=== PATIENT | female | born 1940 | race Caucasian/White ===

== ENCOUNTER 2016-06-03 14:59 | Inpatient (IN) | payer MEDICAID, MEDICARE ==
[2016-06-03 16:20] LABS: Basophils % (Auto) 0.2 % (0.0-1.8); Eosinophils % (Auto) 0.7 % (0.0-4.3); Hematocrit 36.7 % (30.3-42.9); Hemoglobin 12.6 gm/dl (10.1-14.3); Mean Corpuscular HGB Conc 34 % (30-34); Mean Corpuscular Hemoglobin 33 pg (28-32); Mean Corpuscular Volume 95 fl (79-97); Platelet Count 196 K/mm3 (140-440); Red Blood Count 3.86 M/mm3 (3.65-5.03); Red Cell Distribution Width 12.9 % (13.2-15.2); White Blood Count 10.7 K/mm3 (4.5-11.0)
[2016-06-03 16:39] LABS: Alanine Aminotransferase 14 units/L (7-56); Albumin 3.4 g/dL (3.9-5); Alkaline Phosphatase 56 units/L (35-129); Anion Gap 16 mmol/L; Bilirubin,Total 0.3 mg/dL (0.1-1.2); Blood Urea Nitrogen 6 mg/dL (7-17); Calcium 7.9 mg/dL (8.4-10.2); Carbon Dioxide 24 mmol/L (22-30); Chloride 80.8 mmol/L (98-107); Glucose 227 mg/dL (65-100); INR 1.07 (0.87-1.13); Potassium 3.5 mmol/L (3.6-5.0); Total Protein 6.7 g/dL (6.3-8.2)
[2016-06-03 16:45] LABS: Sodium 117 mmol/L (137-145)
[2016-06-03] MEDS ORDERED: NACL 0.9% 1000 ML 1,000 ML IV ONE (16:53)
--- NOTE | 2016-06-03 17:00 | Emergency Department Report ---
HPI - General Chief Complaint: Dyspnea/Respdistress Time Seen by Provider: 06/03/16 16:44 - HPI HPI: Room 4 The patient is a 75-year-old female presenting with a chief complaint of cough and shortness of breath. The patient reports having had a cough for 3 days. Patient states for 3 days has had a cough that has been nonproductive as well as shortness of breath. Patient denies any history of fever. Patient complains of chest pain with cough. The patient went to see her primary physician was sent to the ED after being diagnosed with left-sided pneumonia and pleural effusion. Patient was also found to be in atrial fibrillation with a rapid ventricular response. The patient states she drinks approximate 4 bottles of water daily Location: Lungs Duration: 3 days Quality: Soreness Severity: Moderate Modifying factors: [see above] Context: [see above] Mode of transportation: [not driving] ED Past Medical Hx - Past Medical History Hx Hypertension: Yes Hx Diabetes: Yes Additional medical history: Hypercholesterolemia - Surgical History Past Surgical History?: No Additional Surgical History: Cardiac catheterization. Unknown abdominal surgery - Family History Family history: no significant - Social History Smoking Status: Never Smoker Substance Use Type: None - Medications Home Medications: Home Medications Medication Instructions Recorded Confirmed Last Taken Type Aliskiren/Amlodipin/Hcthiazide 5 mg PO DAILY 10/22/13 12/21/13 10/21/13 History [Amturnide 150-5-12.5 mg Tab] Clopidogrel Bisulfate [Plavix] 75 mg PO DAILY 10/22/13 12/21/13 10/21/13 History Losartan [Cozaar] 25 mg PO DAILY 10/22/13 12/21/13 10/21/13 History Metformin HCl [metFORMIN ER] 500 mg PO DAILY 10/22/13 12/21/13 10/21/13 History Rosuvastatin (Nf) [Crestor] 20 mg PO DAILY 10/22/13 12/21/13 10/21/13 History Triamter/Hctz 37.5-25 mg 1 tab PO DAILY 10/22/13 12/21/13 10/21/13 History [Maxzide-25] glipiZIDE [glipiZIDE XL] 10 mg PO DAILY 10/22/13 12/21/13 10/21/13 History Betamethasone Dipropionate 1 applicatio TP BID 12/21/13 12/21/13 Unknown History [Betamethasone Dipropionate 0.05% Oint] Calamine/Zinc 8-8% [Calamine] 118 ml TP 12/21/13 12/21/13 Unknown History Famotidine [Pepcid] 20 mg PO BID #6 tablet 12/21/13 Unknown Rx Loratadine [Claritin] 10 mg PO DAILY 12/21/13 12/21/13 Unknown History Prednisone [Prednisone 10 mg 10 mg PO .TAPER #1 tab.ds.pk 12/21/13 Unknown Rx (6-Day Pack, 21 Tabs)] diphenhydrAMINE [Benadryl] 50 mg PO Q6HR #24 capsule 12/21/13 Unknown Rx ED Review of Systems ROS: Stated complaint: DANIELA Other details as noted in HPI Comment: All other systems reviewed and negative Constitutional: denies: chills, fever Eyes: denies: eye pain, eye discharge, vision change ENT: denies: ear pain, throat pain Respiratory: cough, shortness of breath Cardiovascular: denies: palpitations Endocrine: no symptoms reported Gastrointestinal: denies: abdominal pain, nausea, vomiting, diarrhea Genitourinary: denies: urgency, dysuria, discharge Musculoskeletal: denies: back pain, joint swelling, arthralgia Skin: denies: rash, lesions Neurological: denies: headache, weakness, paresthesias Psychiatric: denies: anxiety, depression Hematological/Lymphatic: denies: easy bleeding, easy bruising Physical Exam - Physical Exam Vital Signs: Vital Signs 06/03/16 06/03/16 06/03/16 15:22 15:30 15:41 Temperature 98.7 F Pulse Rate 112 H 107 H Respiratory 24 24 Rate Blood Pressure 116/74 Blood Pressure 116/74 [Left] O2 Sat by Pulse 93 95 94 Oximetry 06/03/16 06/03/16 15:45 16:00 Temperature Pulse Rate 102 H 130 H Respiratory 19 22 Rate Blood Pressure 121/73 122/79 Blood Pressure [Left] O2 Sat by Pulse 92 Oximetry Physical Exam: GENERAL: The patient is well-developed well-nourished female lying on stretcher not appearing to be in acute distress. [] HEENT: Normocephalic. Atraumatic. Extraocular motions are intact. Patient has moist mucous membranes. NECK: Supple. Trachea midline CHEST/LUNGS: Occasional cough. There is no respiratory distress noted. HEART/CARDIOVASCULAR: Irregularly irregular. There is no tachycardia. There is no gallop rub or murmur. ABDOMEN: Abdomen is soft, nontender. Patient has normal bowel sounds. There is no abdominal distention. SKIN: There is no rash. There is no edema. There is no diaphoresis. NEURO: The patient is awake, alert, and oriented. The patient is cooperative. The patient has normal speech MUSCULOSKELETAL: There is no evidence of acute injury. ED Course Vital Signs 06/03/16 06/03/16 06/03/16 15:22 15:30 15:41 Temperature 98.7 F Pulse Rate 112 H 107 H Respiratory 24 24 Rate Blood Pressure 116/74 Blood Pressure 116/74 [Left] O2 Sat by Pulse 93 95 94 Oximetry 06/03/16 06/03/16 15:45 16:00 Temperature Pulse Rate 102 H 130 H Respiratory 19 22 Rate Blood Pressure 121/73 122/79 Blood Pressure [Left] O2 Sat by Pulse 92 Oximetry ED Medical Decision Making - Lab Data Result diagrams: 06/03/16 15:50 06/03/16 15:50 Laboratory Tests 06/03/16 06/03/16 06/03/16 15:50 15:50 15:50 WBC 10.7 RBC 3.86 Hgb 12.6 Hct 36.7 MCV 95 MCH 33 H MCHC 34 RDW 12.9 L Plt Count 196 Lymph % (Auto) 8.5 L [place] % (Auto) 6.6 Eos % (Auto) 0.7 Baso % (Auto) 0.2 Lymph # 0.9 L [place] # 0.7 Eos # 0.1 Baso # 0.0 Seg Neutrophils % 84.0 H Seg Neutrophils # 9.0 H PT 13.8 INR 1.07 VBG pH Sodium 117 L* Potassium 3.5 L Chloride 80.8 L Carbon Dioxide 24 Anion Gap 16 BUN 6 L Creatinine 0.4 L Estimated GFR > 60 BUN/Creatinine Ratio 15.00 Glucose 227 H Lactic Acid Calcium 7.9 L Total Bilirubin 0.3 AST 23 ALT 14 Alkaline Phosphatase 56 Total Protein 6.7 Albumin 3.4 L Albumin/Globulin Ratio 1.0 06/03/16 06/03/16 15:50 15:50 WBC RBC Hgb Hct MCV MCH MCHC RDW Plt Count Lymph % (Auto) [place] % (Auto) Eos % (Auto) Baso % (Auto) Lymph # [place] # Eos # Baso # Seg Neutrophils % Seg Neutrophils # PT INR VBG pH 7.426 H Sodium Potassium Chloride Carbon Dioxide Anion Gap BUN Creatinine Estimated GFR BUN/Creatinine Ratio Glucose Lactic Acid 2.2 H* Calcium Total Bilirubin AST ALT Alkaline Phosphatase Total Protein Albumin Albumin/Globulin Ratio - Radiology Data Radiology results: image reviewed (chest x-ray) interpreted by me: Chest [id number] lingular infiltrate. No pneumothorax - Differential Diagnosis pneumonia, pleurisy Critical care attestation.: If time is entered above; I have spent that time in minutes in the direct care of this critically ill patient, excluding procedure time. ED Disposition Clinical Impression: Hyponatremia, Cough, Shortness of breath Disposition: OP ADMITTED IP TO THIS HOSP Is pt being admited?: Yes Does the pt Need Aspirin: Yes Condition: Serious Referrals: PRIMARY CARE, [Primary Care Provider] - 3-5 Days Time of Disposition: 17:37 (hospitalist paged)
--- NOTE | 2016-06-03 17:09 | XRay Report ---
Portable chest: The lungs are hypoventilated. No infiltrates noted. There may be enlargement of the heart but due to the hypoventilation this assessment is limited. The aorta is tortuous with calcification in the arch. No prior study for comparison. Impression: Questionable mild enlargement of the heart. Hypoventilation with no focal pulmonary findings identified.
[2016-06-03] MEDS ORDERED: ROCEPHIN/NS 1 GM/50 ML 1 GM/50 ML BAG IV ONE (17:18)
--- NOTE | 2016-06-03 17:25 | Admit Criteria Form ---
Admission Criteria Documentation: HYPONATREMIA; HYPERNATREMIA; HYPOKALEMIA; HYPERKALEMIA; HYPOCALCEMIA; HYPERCALCEMIA Clinical Indications for Inpatient Care (Place 'X' for any and all applicable criteria): Ongoing inpatient care may be indicated for ANY ONE of the following [G](1)(2)(3 )(5): [X]I. Hyponatremia with ANY ONE of the following: [X]a) Sodium less than 130 mEq/L (mmol/L) (new) (6)(22) [ ]b) Sodium less than 135 mEq/L (mmol/L) with ANY ONE of the following: [ ]i) Severe medical etiology requiring inpatient management (eg, heart failure, hypovolemia) [ ]ii) Altered mental status [ ]iii) Seizures [ ]II. Hypernatremia with ANY ONE of the following: [ ]a) Sodium greater than 155 mEq/L (mmol/L) [ ]b) Sodium greater than 150 mEq/L (mmol/L) with ANY ONE of the following: [ ] i) Altered mental status [ ]ii) Seizures [ ]iii) Severe medical etiology (eg, hypovolemia, diabetes insipidus) [ ]iv) Severe weakness [ ]v) Severe medical etiology (eg, hemolysis, infection, drug overdose) [ ]III. Hypokalemia with ANY ONE of the following: [ ]a) Potassium less than 2.5 mEq/L (mmol/L) despite outpatient and emergency treatment [ ]b) Potassium less than 3.0 mEq/L (mmol/L) with ANY ONE of the following: [ ]i) Weakness [ ]ii) Cardiac abnormality (eg, arrhythmia, conduction disturbance) [ ]iii) Cardiac ischemia [ ]iv) Ileus [ ]v) Ongoing medical cause requiring inpatient management. ( e.g., acute renal wasting, SIADH) [ ]vi) Other severe symptoms [ ] IV. Hyperkalemia with ANY ONE of the following: [ ]a) Potassium greater than 6.5 mEq/L (mmol/L) [ ]b) Potassium greater than 5 mEq/L (mmol/L) with ANY ONE of the following: [ ]i) Severe ECG findings [H] [ ]ii) Acute worsening of renal failure (creatinine greater than 2.5 mg/dL (221 micromoles/L) or significant elevation for age and size) [ ] V. Hypocalcemia with ANY ONE of the following: [ ]a) Calcium less than 7 mg/dL (1.75 mmol/L) despite outpatient and emergency treatment(19) [ ]b) Calcium less than 8 mg/dL (2 mmol/L) with significant symptoms or findings; examples include: [ ]i) Cardiac abnormality (eg, arrhythmia or conduction disturbance) [ ]ii) Altered mental status [ ]iii) Seizures [ ]iv) Breathing difficulty [ ]v) Muscle spasms [ ]. Hypercalcemia with ANY ONE of the following: [ ]a) Calcium greater than 14 mg/dL (3.5 mmol/L) [ ]b) Calcium greater than 12 mg/dL (3 mmol/L) with ANY ONE of the following: [ ]i) Significant dehydration or hypovolemia as indicated by ANY ONE of the following(2): [ ]1. Clinically significant dehydration as indicated by ANY ONE of the following: [ ]A. Acute loss of weight from baseline (5% of body weight in adults, 9% in pediatric patients) [ ]B. Hemodynamic instability [ ]C. Acute renal failure [ ]D. Serum sodium greater than 150 mEq/L (mmol/L) [ ]2) Dehydration that is persistent indicated by ALL of the following: [ ]A. Oral rehydration therapy not tolerated or insufficient to adequately correct dehydration [ ]B. Appropriate intravenous treatment (eg, fluids ) does not readily correct dehydration ie, after 12 to 24 hours of treatment) [ ]ii) Significant symptoms or findings; examples include: [ ]1) Altered mental status [ ]2) Cardiac abnormality (eg, arrhythmia, conduction disturbance) [ ]3) Cardiac abnormality (eg, arrhythmia, conduction disturbance) The original [facility] content created by [employer] has been revised. The portions of the content which have been revised are identified through the use of italic text or in bold, and [facility] has neither reviewed nor approved the modified material. All other unmodified content is copyright [facility] Please see references footnoted in the original [facility] edition 2016 Admission Criteria Met: Yes
[2016-06-03 18:00] LABS: Bilirubin,Urine NEG (Negative); Blood,Urine MOD (Negative); Ketones,Urine NEG (Negative); Leukocyte Esterase,Urine NEG (Negative); Nitrite,Urine NEG (Negative); Protein,Urine <15 mg/dL mg/dL (Negative); Urobilinogen,Urine < 2.0 mg/dL (<2.0); WBC,Urine < 1.0 /HPF (0.0-6.0)
--- NOTE | 2016-06-03 22:26 | Event Note ---
Date: 06/03/16 See H/p in reports LLL pneumonia oer me and ER physician--radiology report no infiltrate Hyponatremia t2DM HTN CAD HLD
[2016-06-03] MEDS ORDERED: NACL 3% 500 ML IV ONE (22:29)
[2016-06-03 23:42] LABS: Chloride 95.3 mmol/L (98-107); Potassium 3.5 mmol/L (3.6-5.0)
[2016-06-04] MEDS: BENADRYL PO SCH ×4 (00:43→17:55)
[2016-06-04 06:45] LABS: Eosinophils % (Auto) 1.2 % (0.0-4.3); Hematocrit 36.2 % (30.3-42.9); Hemoglobin 12.2 gm/dl (10.1-14.3); Mean Corpuscular HGB Conc 34 % (30-34); Mean Corpuscular Hemoglobin 32 pg (28-32); Mean Corpuscular Volume 96 fl (79-97); Platelet Count 196 K/mm3 (140-440); Red Blood Count 3.76 M/mm3 (3.65-5.03); Red Cell Distribution Width 13.4 % (13.2-15.2)
[2016-06-04 07:01] LABS: Alanine Aminotransferase 12 units/L (7-56); Albumin 3.1 g/dL (3.9-5); Alkaline Phosphatase 47 units/L (35-129); Anion Gap 17 mmol/L; Bilirubin,Total 0.2 mg/dL (0.1-1.2); Blood Urea Nitrogen 5 mg/dL (7-17); Calcium 7.7 mg/dL (8.4-10.2); Carbon Dioxide 24 mmol/L (22-30); Glucose 143 mg/dL (65-100); Potassium 3.6 mmol/L (3.6-5.0); Sodium 138 mmol/L (137-145); Total Protein 6.1 g/dL (6.3-8.2)
[2016-06-04] MEDS ORDERED: PLAVIX PO SCH (10:00)
[2016-06-04] MEDS ORDERED: DELTASONE PO SCH ×2 (10:00→16:36)
[2016-06-04] MEDS: GLUCOPHAGE XR PO SCH (10:48)
[2016-06-04] MEDS: COZAAR PO SCH (10:50)
[2016-06-04] MEDS: PEPCID PO SCH ×2 (10:56→22:03)
[2016-06-04] MEDS: CLARITIN PO SCH (10:56)
[2016-06-04] MEDS: LEVAQUIN 750MG/150ML 750 MG/150 ML BAG IV SCH (11:00)
[2016-06-04] MEDS: NOVOLOG SUB-Q SCH ×3 (11:00→22:04)
[2016-06-04] MEDS: GLUCOTROL XL PO SCH (11:05)
[2016-06-04] MEDS: DIPROSONE TP SCH ×2 (11:05→22:01)
--- NOTE | 2016-06-04 15:34 | History and Physical Report ---
CHIEF COMPLAINT: Increasing shortness of breath and fever for 3 days. HISTORY OF PRESENT ILLNESS: A 75-year-old female sent in by the primary care for evaluation for pneumonia. The patient was started on p.o. antibiotics, but the patient did not fill the prescription. The patient has been having cough and shortness of breath for the last 3 days. Cough is nonproductive. Also, chest pain with cough. The patient was sent to the ED after being diagnosed with left-sided pneumonia and left pleural effusion. The patient was also found to be in atrial fibrillation with rapid ventricular response. The patient is also short of breath at rest. The patient drinks about 4 bottles of water a day. Drinks excess amount of liquids. PAST MEDICAL HISTORY: Significant for hypertension, hyperlipidemia, coronary artery disease, type 2 diabetes, and gastroesophageal reflux disease. PAST SURGICAL HISTORY: Cardiac catheterization, unknown abdominal surgery. FAMILY HISTORY: Hypertension. SOCIAL HISTORY: Does not smoke. No alcohol, no recreational drugs. CURRENT MEDICATIONS: Amlodipine 5 mg daily, hydrochlorothiazide 12.5 mg once a day, Plavix 75 mg once a day, losartan 25 mg once a day, metformin 500 mg once a day, Maxzide one tablet daily, Crestor 20 mg once a day, metformin 500 mg once a day, glipizide 10 mg once a day, betamethasone 1 application b.i.d., famotidine 20 mg twice a day, loratadine 10 mg once a day, and prednisone . REVIEW OF SYSTEMS: CONSTITUTIONAL: Fever and cough present. No weight loss, no weight gain. HEENT: No sore throat, no postnasal drip. RESPIRATORY SYSTEM: Cough and shortness of breath present. Cough is nonproductive. CARDIOVASCULAR SYSTEM: No chest pain, no palpitations. Chest pain on inspiration present. GASTROINTESTINAL: No nausea, no vomiting, no diarrhea. GENITOURINARY: No dysuria, no flank pain. MUSCULOSKELETAL: No joint pains. CENTRAL NERVOUS SYSTEM: No syncope, no seizures. SKIN: No rashes. PSYCHIATRIC: No depression, no anxiety. HEMATOLOGIC/LYMPHATIC: No easy bruising. PHYSICAL EXAMINATION: GENERAL: Elderly female, cooperative during examination, well-developed, well nourished. VITAL SIGNS: Blood pressure is 116/74, temperature is 98.7, pulse is 112, sats are . HEENT: Unremarkable. Pupils equal and reactive. NECK: Supple, no lymphadenopathy, no thyromegaly. LUNGS: Scattered rales bilaterally. Good air entry. CARDIOVASCULAR: S1, S2 heard. No gallop, no murmur, no rub. Apical impulse in left fifth intercostal space and midclavicular line. ABDOMEN: Soft and benign. No hepatosplenomegaly. No guarding, no rigidity. Hernial orifices are normal. EXTREMITIES: Good pedal pulses. No pedal edema. CENTRAL NERVOUS SYSTEM: Alert and oriented x 4, nonfocal exam. LABORATORY DATA: Chest x-ray shows questionable mild enlargement of the heart, hypoventilation with no focal pulmonary findings. EKG, sinus tachycardia, atrial fibrillation with rapid ventricular rate. Labs significant for sodium of 117, potassium of 3.5, BUN and creatinine of 6 and 0.4 and glucose 227. White count is 10,700, H and H is 12.6 and 36.7, platelet count is 196,000. Albumin is 3.4 slightly low. ASSESSMENT AND PLAN: 1. Left lower lobe pneumonia. The patient was started on IV Levaquin. DuoNebs as necessary. Low dose of prednisone. 2. Hyponatremia, 3% normal saline given, urine electrolytes ordered, and monitor sodium level. 3. Hypertension. Continue amlodipine, Maxzide and hydrochlorothiazide. 4. Coronary artery disease. Continue Plavix 75 mg daily. 5. Hyperlipidemia. We will hold the simvastatin for the time being. We will resume the simvastatin at the time of discharge. 6. Insulin-dependent diabetes. Continue metformin, glipizide and insulin coverage. 7. Deep venous thrombosis prophylaxis, Lovenox 40 mg subcutaneous daily. JOB# [id number] VSM/NTS
--- NOTE | 2016-06-04 16:33 | Progress Note ---
Assessment and Plan Assessment and plan: Acute asthma exacerbation - cont supplimental O2, abx, emperic steroid H/o CAD - resume home meds Htn, Benign -monitor BP, cont current meds Hyponatremia - likley due to dehydration, improved with IV fluid DM2 - ADa diet, SSI History Interval history: Pt seen and examined, denies any chest pain, still SOB with minimal exertion Update family by phone Hospitalist Physical - Constitutional Vitals: Temp Pulse Resp BP Pulse Ox 98.3 F 102 H 20 136/73 96 06/04/16 11:30 06/04/16 11:30 06/04/16 11:30 06/04/16 11:30 06/04/16 11:30 General appearance: Present: no acute distress - EENT Eyes: Present: PERRL, EOM intact ENT: clear oral mucosa, dentition normal - Neck Neck: Present: supple, normal ROM - Respiratory Respiratory effort: normal Respiratory: bilateral: wheezing - Cardiovascular Rhythm: regular Heart Sounds: Present: S1 & S2 - Extremities Extremities: no ischemia, pulses intact Peripheral Pulses: within normal limits - Abdominal General gastrointestinal: soft, non-tender, non-distended - Integumentary Integumentary: Present: warm, dry - Psychiatric Psychiatric: no agitated - Neurologic Neurologic: no focal deficits Results - Labs CBC & Chem 7: 06/04/16 05:37 06/04/16 05:37 Labs: Laboratory Last Values WBC 7.0 K/mm3 (4.5-11.0) 06/04/16 05:37 RBC 3.76 M/mm3 (3.65-5.03) 06/04/16 05:37 Hgb 12.2 gm/dl (10.1-14.3) 06/04/16 05:37 Hct 36.2 % (30.3-42.9) 06/04/16 05:37 MCV 96 fl (79-97) 06/04/16 05:37 MCH 32 pg (28-32) 06/04/16 05:37 MCHC 34 % (30-34) 06/04/16 05:37 RDW 13.4 % (13.2-15.2) 06/04/16 05:37 Plt Count 196 K/mm3 (140-440) 06/04/16 05:37 Lymph % (Auto) 21.0 % (13.4-35.0) 06/04/16 05:37 [place] % (Auto) 9.9 % (0.0-7.3) H 06/04/16 05:37 Eos % (Auto) 1.2 % (0.0-4.3) 06/04/16 05:37 Baso % (Auto) 1.0 % (0.0-1.8) 06/04/16 05:37 Lymph # 1.5 K/mm3 (1.2-5.4) 06/04/16 05:37 [place] # 0.7 K/mm3 (0.0-0.8) 06/04/16 05:37 Eos # 0.1 K/mm3 (0.0-0.4) 06/04/16 05:37 Baso # 0.1 K/mm3 (0.0-0.1) 06/04/16 05:37 Seg Neutrophils % 66.9 % (40.0-70.0) 06/04/16 05:37 Seg Neutrophils # 4.7 K/mm3 (1.8-7.7) 06/04/16 05:37 PT 13.8 Sec. (12.2-14.9) 06/03/16 15:50 INR 1.07 (0.87-1.13) 06/03/16 15:50 VBG pH 7.426 (7.320-7.420) H 06/03/16 15:50 Sodium 138 mmol/L (137-145) 06/04/16 05:37 Potassium 3.6 mmol/L (3.6-5.0) 06/04/16 05:37 Chloride 101.0 mmol/L (98-107) 06/04/16 05:37 Carbon Dioxide 24 mmol/L (22-30) 06/04/16 05:37 Anion Gap 17 mmol/L 06/04/16 05:37 BUN 5 mg/dL (7-17) L 06/04/16 05:37 Creatinine 0.4 mg/dL (0.7-1.2) L 06/04/16 05:37 Estimated GFR > 60 ml/min 06/04/16 05:37 BUN/Creatinine Ratio 12.50 % 06/04/16 05:37 Glucose 143 mg/dL (65-100) H 06/04/16 05:37 Lactic Acid 1.5 mmol/L (0.7-2.0) 06/03/16 18:58 Calcium 7.7 mg/dL (8.4-10.2) L 06/04/16 05:37 Total Bilirubin 0.2 mg/dL (0.1-1.2) 06/04/16 05:37 AST 20 units/L (5-40) 06/04/16 05:37 ALT 12 units/L (7-56) 06/04/16 05:37 Alkaline Phosphatase 47 units/L (35-129) 06/04/16 05:37 Total Protein 6.1 g/dL (6.3-8.2) L 06/04/16 05:37 Albumin 3.1 g/dL (3.9-5) L 06/04/16 05:37 Albumin/Globulin Ratio 1.0 % 06/04/16 05:37 Urine Color Colorless (Yellow) 06/03/16 17:10 Urine Turbidity Clear (Clear) 06/03/16 17:10 Urine pH 7.0 (5.0-7.0) 06/03/16 17:10 Ur Specific [place] 1.002 (1.003-1.030) L 06/03/16 17:10 Urine Protein <15 mg/dl mg/dL (Negative) 06/03/16 17:10 Urine Glucose (UA) 150 mg/dL (Negative) 06/03/16 17:10 Urine Ketones Neg mg/dL (Negative) 06/03/16 17:10 Urine Blood Mod (Negative) 06/03/16 17:10 Urine Nitrite Neg (Negative) 06/03/16 17:10 Urine Bilirubin Neg (Negative) 06/03/16 17:10 Urine Urobilinogen < 2.0 mg/dL (<2.0) 06/03/16 17:10 Ur Leukocyte Esterase Neg (Negative) 06/03/16 17:10 Urine WBC (Auto) < 1.0 /HPF (0.0-6.0) 06/03/16 17:10 Urine RBC (Auto) 2.0 /HPF (0.0-6.0) 06/03/16 17:10 Digoxin 0.5 ng/mL (0.9-2.0) L 06/03/16 17:06
[2016-06-04] MEDS ORDERED: NON-FORMULARY (Rosuvastatin (Nf) 20 MG) PO SCH (16:45)
[2016-06-04] MEDS: LOPRESSOR PO SCH ×2 (17:57→22:02)
[2016-06-04] MEDS ORDERED: LOVENOX SUB-Q SCH (22:00)
[2016-06-05] MEDS: BENADRYL PO SCH ×4 (00:17→18:33)
[2016-06-05] MEDS ORDERED: NITROSTAT SL PRN (04:56)
[2016-06-05] MEDS: NOVOLOG SUB-Q SCH ×4 (08:31→22:45)
[2016-06-05] MEDS: GLUCOTROL XL PO SCH (08:55)
--- NOTE | 2016-06-05 10:21 | Consultation ---
History of Present Illness Consult date: 06/05/16 Requesting physician: IRENE CROOK Consult reason: atrial fibrillation History of present illness: This is a 75-year-old Spanish female with history of diabetes hypertension hyperlipidemia presents with coughing and palpitations found with left lower pneumonia with new onset H fibrillation patient presently denies any chest palpitations unclear duration. 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 Patient denies any chest pain or shortness of breath prior to this but was having cough with no fever or chills or melanotic or dizziness or syncope. Past History Past Medical History: diabetes, hypertension, hyperlipidemia Past Surgical History: No surgical history Social history: no significant social history Family history: no significant family history Medications and Allergies Allergies Allergy/AdvReac Type Severity Reaction Status Date / Time No Known Allergies Allergy Unverified 10/22/13 08:15 Home Medications Medication Instructions Recorded Confirmed Last Taken Type Aliskiren/Amlodipin/Hcthiazide 5 mg PO DAILY 10/22/13 12/21/13 10/21/13 History [Amturnide 150-5-12.5 mg Tab] Clopidogrel Bisulfate [Plavix] 75 mg PO DAILY 10/22/13 12/21/13 10/21/13 History Losartan [Cozaar] 25 mg PO DAILY 10/22/13 12/21/13 10/21/13 History Metformin HCl [metFORMIN ER] 500 mg PO DAILY 10/22/13 12/21/13 10/21/13 History Rosuvastatin (Nf) [Crestor] 20 mg PO DAILY 10/22/13 12/21/13 10/21/13 History Triamter/Hctz 37.5-25 mg 1 tab PO DAILY 10/22/13 12/21/13 10/21/13 History [Maxzide-25] glipiZIDE [glipiZIDE XL] 10 mg PO DAILY 10/22/13 12/21/13 10/21/13 History Betamethasone Dipropionate 1 applicatio TP BID 12/21/13 12/21/13 Unknown History [Betamethasone Dipropionate 0.05% Oint] Calamine/Zinc 8-8% [Calamine] 118 ml TP 12/21/13 12/21/13 Unknown History Famotidine [Pepcid] 20 mg PO BID #6 tablet 12/21/13 Unknown Rx Loratadine [Claritin] 10 mg PO DAILY 12/21/13 12/21/13 Unknown History Prednisone [Prednisone 10 mg 10 mg PO .TAPER #1 tab.ds.pk 12/21/13 Unknown Rx (6-Day Pack, 21 Tabs)] diphenhydrAMINE [Benadryl] 50 mg PO Q6HR #24 capsule 12/21/13 Unknown Rx Active Meds: Active Medications Apixaban (Eliquis) 5 mg PO Q12HR [facility] Atorvastatin Calcium (Lipitor) 40 mg PO QHS [facility] Last Admin: 06/04/16 22:03 Dose: 40 mg Betamethasone Dipropionate (Diprosone) 1 applic TP BID [facility] Last Admin: 06/04/16 22:01 Dose: 1 applic Diphenhydramine HCl (Benadryl) 50 mg PO Q6HR [facility] Last Admin: 06/05/16 06:02 Dose: 50 mg Famotidine (Pepcid) 20 mg PO BID [facility] Last Admin: 06/04/16 22:03 Dose: 20 mg Glipizide (Glucotrol Xl) 10 mg PO QDDIAB [facility] Last Admin: 06/05/16 08:55 Dose: 10 mg Levofloxacin/Dextrose (Levaquin 750mg/150ml) 750 mg in 150 mls @ 100 mls/hr IV Q24HR [facility] PRN Reason: Protocol Last Infusion: 06/04/16 12:30 Dose: 100 mls/hr Insulin Aspart (Novolog) 0 units SUB-Q ACHS [facility] PRN Reason: Protocol Last Admin: 06/04/16 22:04 Dose: 3 units Loratadine (Claritin) 10 mg PO DAILY [facility] Last Admin: 06/04/16 10:56 Dose: 10 mg Losartan Potassium (Cozaar) 25 mg PO DAILY [facility] Last Admin: 06/04/16 10:50 Dose: 25 mg Metformin HCl (Glucophage Xr) 500 mg PO DAILY [facility] Last Admin: 06/04/16 10:48 Dose: 500 mg Metoprolol Tartrate (Lopressor) 50 mg PO BID [facility] Nitroglycerin (Nitrostat) 0.4 mg SL .Q5MIN PRN PRN Reason: Chest Pain Last Admin: 06/05/16 05:15 Dose: 0.4 mg Prednisone (Deltasone) 40 mg PO QDAY [facility] Review of Systems All systems: negative (as per the HPI) Physical Examination Vital Signs Pulse Ox 93 06/03/16 15:22 General appearance: no acute distress, well-nourished HEENT: Positive: PERRL, Mucus Membranes Moist Neck: Positive: neck supple, trachea midline Cardiac: Positive: Irregularly Regular, S1/S2. Negative: Audible Murmur Lungs: Positive: clear to auscultation, Normal Breath Sounds Neuro: Positive: Grossly Intact Abdomen: Positive: Soft, Active Bowel Sounds. Negative: Tender, Distended Female genitourinary: deferred Skin: Positive: Clear Incision: Cardiac Cath Site Musculoskeletal: No Pain, Normal Range of Motion Extremities: Present: normal. Absent: edema Results 06/04/16 05:37 06/04/16 05:37 EKG interpretations - Telemetry EKG Rhythm: Atrial Fibrillation (nonspecific ST-T is a) Assessment and Plan a fib new onset PNA Hyponatermia HTN CHOL DM rec: Heart rate is improved Lopressor will change to beta jose Lopressor 50 twice a day start Dorie given her chads score of 3 and waiting for echocardiogram discussed this in detail patient's grandson and will stop Plavix therapy
[2016-06-05] MEDS: LEVAQUIN 750MG/150ML 750 MG/150 ML BAG IV SCH (11:29)
[2016-06-05] MEDS: CLARITIN PO SCH (11:29)
[2016-06-05] MEDS: DELTASONE PO SCH (11:30)
[2016-06-05] MEDS: DIPROSONE TP SCH ×2 (11:30→21:38)
[2016-06-05] MEDS: COZAAR PO SCH (11:30)
[2016-06-05] MEDS: GLUCOPHAGE XR PO SCH (11:30)
[2016-06-05] MEDS: LOPRESSOR PO SCH ×2 (11:31→21:40)
[2016-06-05] MEDS: PEPCID PO SCH ×2 (11:31→21:37)
[2016-06-05] MEDS: ELIQUIS PO SCH ×2 (13:09→21:36)
--- NOTE | 2016-06-05 16:37 | Progress Note ---
Assessment and Plan Assessment and plan: The patient is a 75-year-old female presenting with a chief complaint of cough and shortness of breath for last 3days. Patient was also found to be in atrial fibrillation with a rapid ventricular response in the ER. Acute asthma exacerbation - cont supplimental O2, abx, emperic steroid H/o CAD - resume home meds - stopped plavex as she is on eliquis now Htn, Benign -monitor BP, cont current meds Hyponatremia - likley due to dehydration, improved with IV fluid DM2 - ADa diet, SSI New onset atrial Fib - She was placed on therapeutic dose of lovenox, - cardiology recommended eliquis, wait for 2d echo result - placed on lopressor for rate control disposition: home, add sleeping aid at bedtime History Interval history: Pt seen and examined, denies any chest pain, still SOB with minimal exertion Update family at bedside c/o poor sleep at night Hospitalist Physical - Physical exam Narrative exam: General appearance: Present: no acute distress - EENT Eyes: Present: PERRL, EOM intact ENT: clear oral mucosa, dentition normal - Neck Neck: Present: supple, normal ROM - Respiratory Respiratory effort: normal Respiratory: bilateral: wheezing - Cardiovascular Rhythm: irregular Heart Sounds: Present: S1 & S2 - Extremities Extremities: no ischemia, pulses intact Peripheral Pulses: within normal limits - Abdominal General gastrointestinal: soft, non-tender, non-distended - Integumentary Integumentary: Present: warm, dry - Psychiatric Psychiatric: no agitated - Neurologic Neurologic: no focal deficits - Constitutional Vitals: Temp Pulse Resp BP Pulse Ox 98.5 F 96 H 18 142/85 98 06/05/16 11:30 06/05/16 11:30 06/05/16 11:30 06/05/16 11:30 06/05/16 11:30 General appearance: Present: no acute distress, well-nourished Results - Labs CBC & Chem 7: 06/04/16 05:37 06/04/16 05:37 Labs: Laboratory Last Values WBC 7.0 K/mm3 (4.5-11.0) 06/04/16 05:37 RBC 3.76 M/mm3 (3.65-5.03) 06/04/16 05:37 Hgb 12.2 gm/dl (10.1-14.3) 06/04/16 05:37 Hct 36.2 % (30.3-42.9) 06/04/16 05:37 MCV 96 fl (79-97) 06/04/16 05:37 MCH 32 pg (28-32) 06/04/16 05:37 MCHC 34 % (30-34) 06/04/16 05:37 RDW 13.4 % (13.2-15.2) 06/04/16 05:37 Plt Count 196 K/mm3 (140-440) 06/04/16 05:37 Lymph % (Auto) 21.0 % (13.4-35.0) 06/04/16 05:37 [place] % (Auto) 9.9 % (0.0-7.3) H 06/04/16 05:37 Eos % (Auto) 1.2 % (0.0-4.3) 06/04/16 05:37 Baso % (Auto) 1.0 % (0.0-1.8) 06/04/16 05:37 Lymph # 1.5 K/mm3 (1.2-5.4) 06/04/16 05:37 [place] # 0.7 K/mm3 (0.0-0.8) 06/04/16 05:37 Eos # 0.1 K/mm3 (0.0-0.4) 06/04/16 05:37 Baso # 0.1 K/mm3 (0.0-0.1) 06/04/16 05:37 Seg Neutrophils % 66.9 % (40.0-70.0) 06/04/16 05:37 Seg Neutrophils # 4.7 K/mm3 (1.8-7.7) 06/04/16 05:37 PT 13.8 Sec. (12.2-14.9) 06/03/16 15:50 INR 1.07 (0.87-1.13) 06/03/16 15:50 VBG pH 7.426 (7.320-7.420) H 06/03/16 15:50 Sodium 138 mmol/L (137-145) 06/04/16 05:37 Potassium 3.6 mmol/L (3.6-5.0) 06/04/16 05:37 Chloride 101.0 mmol/L (98-107) 06/04/16 05:37 Carbon Dioxide 24 mmol/L (22-30) 06/04/16 05:37 Anion Gap 17 mmol/L 06/04/16 05:37 BUN 5 mg/dL (7-17) L 06/04/16 05:37 Creatinine 0.4 mg/dL (0.7-1.2) L 06/04/16 05:37 Estimated GFR > 60 ml/min 06/04/16 05:37 BUN/Creatinine Ratio 12.50 % 06/04/16 05:37 Glucose 143 mg/dL (65-100) H 06/04/16 05:37 POC Glucose 233 (70-105) H 06/04/16 20:56 Lactic Acid 1.5 mmol/L (0.7-2.0) 06/03/16 18:58 Calcium 7.7 mg/dL (8.4-10.2) L 06/04/16 05:37 Total Bilirubin 0.2 mg/dL (0.1-1.2) 06/04/16 05:37 AST 20 units/L (5-40) 06/04/16 05:37 ALT 12 units/L (7-56) 06/04/16 05:37 Alkaline Phosphatase 47 units/L (35-129) 06/04/16 05:37 Total Protein 6.1 g/dL (6.3-8.2) L 06/04/16 05:37 Albumin 3.1 g/dL (3.9-5) L 06/04/16 05:37 Albumin/Globulin Ratio 1.0 % 06/04/16 05:37 Urine Color Colorless (Yellow) 06/03/16 17:10 Urine Turbidity Clear (Clear) 06/03/16 17:10 Urine pH 7.0 (5.0-7.0) 06/03/16 17:10 Ur Specific [place] 1.002 (1.003-1.030) L 06/03/16 17:10 Urine Protein <15 mg/dl mg/dL (Negative) 06/03/16 17:10 Urine Glucose (UA) 150 mg/dL (Negative) 06/03/16 17:10 Urine Ketones Neg mg/dL (Negative) 06/03/16 17:10 Urine Blood Mod (Negative) 06/03/16 17:10 Urine Nitrite Neg (Negative) 06/03/16 17:10 Urine Bilirubin Neg (Negative) 06/03/16 17:10 Urine Urobilinogen < 2.0 mg/dL (<2.0) 06/03/16 17:10 Ur Leukocyte Esterase Neg (Negative) 06/03/16 17:10 Urine WBC (Auto) < 1.0 /HPF (0.0-6.0) 06/03/16 17:10 Urine RBC (Auto) 2.0 /HPF (0.0-6.0) 06/03/16 17:10 Digoxin 0.5 ng/mL (0.9-2.0) L 06/03/16 17:06
[2016-06-05] MEDS ORDERED: AMBIEN PO PRN (22:00)
[2016-06-06] MEDS: BENADRYL PO SCH ×4 (00:11→17:54)
[2016-06-06] MEDS ORDERED: TESSALON PERLES PO PRN (03:33)
[2016-06-06 06:41] LABS: Basophils % (Auto) 0.2 % (0.0-1.8); Eosinophils % (Auto) 0.1 % (0.0-4.3); Hematocrit 39.9 % (30.3-42.9); Hemoglobin 13.6 gm/dl (10.1-14.3); Mean Corpuscular HGB Conc 34 % (30-34); Mean Corpuscular Hemoglobin 32 pg (28-32); Mean Corpuscular Volume 95 fl (79-97); Platelet Count 245 K/mm3 (140-440); Red Blood Count 4.21 M/mm3 (3.65-5.03); Red Cell Distribution Width 13.4 % (13.2-15.2)
[2016-06-06 06:59] LABS: Alanine Aminotransferase 15 units/L (7-56); Albumin 3.5 g/dL (3.9-5); Albumin/Globulin Ratio 0.9 %; Alkaline Phosphatase 46 units/L (35-129); Anion Gap 16 mmol/L; Bilirubin,Total 0.4 mg/dL (0.1-1.2); Blood Urea Nitrogen 8 mg/dL (7-17); Calcium 8.6 mg/dL (8.4-10.2); Carbon Dioxide 27 mmol/L (22-30); Chloride 95.3 mmol/L (98-107); Glucose 108 mg/dL (65-100); Potassium 3.1 mmol/L (3.6-5.0); Sodium 135 mmol/L (137-145); Total Protein 7.2 g/dL (6.3-8.2)
[2016-06-06] MEDS: GLUCOTROL XL PO SCH (08:06)
--- NOTE | 2016-06-06 10:26 | Discharge Summary ---
Providers - Providers Date of Admission: 06/03/16 18:14 Date of discharge: 06/06/16 Attending physician: IRENE CROOK 06/04/16 14:04 Physical Therapy Evaluation and Treat [CONS] Routine Comment: Reason For Exam: ambulation 06/04/16 16:36 Consult to Physician [CONS] Routine Consulting Provider: LEOLA MENDEZ Reason For Exam: atrial fib Place consult to:: probation supervisor cardiology Notified:: Rose VERDIN Phone number called:: Was contact made?: Yes If yes, spoke with:: Sarah-answering service Time called:: 16:53 Primary care physician: PUBLISHING SPECIALIST Hospitalization Condition: Serious Hospital course: The patient is a 75-year-old female presenting with a chief complaint of cough and shortness of breath for last 3days. Patient was also found to be in atrial fibrillation with a rapid ventricular response in the ER. Discharge Diagnoses: Acute asthma exacerbation - s/p supplimental O2, abx, emperic steroid, nebulizer breathing Rx - cont inhelat, po abx and tappering dose of steroid at home H/o CAD - stopped plavex as she is on eliquis now - cont metoprolol and ACEI Htn, Benign -on metoprolol and Cozzar Hyponatremia - likley due to dehydration and medication, was on HCTZ at home - improved with IV fluid - Stopped HCTZ DM2 - ADA diet, cont metformin New onset atrial Fib - She was placed on therapeutic dose of lovenox, - cardiology recommended eliquis, 2d echo showed EF 35 to 40% - placed on lopressor for rate control Systolic CHF, compensated - cont betablocker and ACEI - Pt is compensated and hypokalemic, can start diuretics outpt Hypokalemia - repleted Disposition: DC/TX HOME UNDER HOME HEALTH Time spent for discharge: 32 minutes Core Measure Documentation - Palliative Care Palliative Care/ Comfort Measures: Not Applicable - Core Measures Any of the following diagnoses?: heart failure - Heart Failure Discharge Requirements JONNY/ARB for LVSD if EF <40%: Yes Beta jose at discharge: Yes Exam - Physical Exam Narrative exam: General appearance: Present: no acute distress - EENT Eyes: Present: PERRL, EOM intact ENT: clear oral mucosa, dentition normal - Neck Neck: Present: supple, normal ROM - Respiratory Respiratory effort: normal Respiratory: bilateral: few wheezing - Cardiovascular Rhythm: irregular Heart Sounds: Present: S1 & S2 - Extremities Extremities: no ischemia, pulses intact Peripheral Pulses: within normal limits - Abdominal General gastrointestinal: soft, non-tender, non-distended - Integumentary Integumentary: Present: warm, dry - Psychiatric Psychiatric: no agitated - Neurologic Neurologic: no focal deficits - Constitutional Vitals: Temp Pulse Resp BP Pulse Ox 98.6 F 92 H 20 165/89 97 06/06/16 09:15 06/06/16 09:15 06/06/16 09:15 06/06/16 09:15 06/06/16 09:15 Plan Activity: fall precautions Weight Bearing Status: Weight Bear as Tolerated Diet: low cholesterol, low salt, diabetic Follow up with: PRIMARY CARE,MD [Primary Care Provider] - 3-5 Days Prescriptions: ALBUTEROL Inhaler [ProAir HFA Inhaler] 2 puff IH QID PRN 30 Days PRN Reason: Shortness Of Breath Budesoni/Formotero 160-4.5(Nf) [Symbicort 160-4.5 (Nf)] 2 puff IH BID 30 Days Losartan [Cozaar] 50 mg PO DAILY #30 tablet metFORMIN XR [Glucophage XR] 500 mg PO DAILY #30 tablet Metoprolol [Lopressor TAB] 50 mg PO BID #60 tablet Prednisone [predniSONE 10 mg (6-Day Pack, 21 Tabs)] 10 mg PO .TAPER #1 tab.ds.pk
[2016-06-06] MEDS ORDERED: COZAAR PO SCH ×3 (10:34→11:47)
[2016-06-06] MEDS: DIPROSONE TP SCH ×2 (10:40→23:12)
[2016-06-06] MEDS: LEVAQUIN 750MG/150ML 750 MG/150 ML BAG IV SCH (10:55)
[2016-06-06] MEDS: DELTASONE PO SCH (10:56)
[2016-06-06] MEDS: PEPCID PO SCH ×3 (10:56→23:14)
[2016-06-06] MEDS: LOPRESSOR PO SCH ×3 (10:57→17:55)
[2016-06-06] MEDS: CLARITIN PO SCH (10:57)
[2016-06-06] MEDS: GLUCOPHAGE XR PO SCH (10:57)
[2016-06-06] MEDS ORDERED: ZESTRIL PO SCH (11:00)
--- NOTE | 2016-06-06 11:19 | Progress Note ---
Assessment and Plan Assessment and plan: The patient is a 75-year-old female with h/o asthma presenting with a chief complaint of cough and shortness of breath for last 3days. Patient was also found to be in atrial fibrillation with a rapid ventricular response in the ER. Placed on eliquis and metoprolol for new onset At Fib. 2D echo showed EF of 25 to 30%, plan for cardiac cath tomorrow. Acute asthma exacerbation - on supplimental O2, abx, emperic steroid, nebulizer breathing Rx - cont inhelat, po abx and tappering dose of steroid at home H/o CAD - stopped plavex as she is on eliquis now - cont metoprolol and ACEI Htn, Benign -on metoprolol and Cozzar - increased the dose of cozzar roday Hyponatremia - likley due to dehydration and medication, was on HCTZ at home - improved with IV fluid - Stopped HCTZ DM2 - ADA diet, cont metformin, SSI New onset atrial Fib - She was placed on therapeutic dose of lovenox following admission, - cardiology recommended eliquis, 2d echo showed EF 35 to 40% - placed on lopressor for rate control New onset Systolic CHF, compensated - cont betablocker and ACEI - Pt is compensated and hypokalemic, can start diuretics outpt - plan for cardiac cath tomorrow for possible underlying ischemia Hypokalemia - cont to replete disposition: home, cont sleeping aid at bedtime History Interval history: Pt seen and examined, denies any chest pain, still SOB with minimal exertion Update family at bedside Patient wants to go home today, discussed with cardiology [employer], plan for cardiac cath tomorrow Hospitalist Physical - Constitutional Vitals: Temp Pulse Resp BP Pulse Ox 98.6 F 87 20 132/70 97 06/06/16 09:15 06/06/16 10:57 06/06/16 09:15 06/06/16 10:57 06/06/16 09:15 General appearance: Present: no acute distress, well-nourished Results - Labs CBC & Chem 7: 06/06/16 06:04 06/06/16 06:04 Labs: Laboratory Last Values WBC 10.0 K/mm3 (4.5-11.0) 06/06/16 06:04 RBC 4.21 M/mm3 (3.65-5.03) 06/06/16 06:04 Hgb 13.6 gm/dl (10.1-14.3) 06/06/16 06:04 Hct 39.9 % (30.3-42.9) 06/06/16 06:04 MCV 95 fl (79-97) 06/06/16 06:04 MCH 32 pg (28-32) 06/06/16 06:04 MCHC 34 % (30-34) 06/06/16 06:04 RDW 13.4 % (13.2-15.2) 06/06/16 06:04 Plt Count 245 K/mm3 (140-440) 06/06/16 06:04 Lymph % (Auto) 26.2 % (13.4-35.0) 06/06/16 06:04 [place] % (Auto) 10.7 % (0.0-7.3) H 06/06/16 06:04 Eos % (Auto) 0.1 % (0.0-4.3) 06/06/16 06:04 Baso % (Auto) 0.2 % (0.0-1.8) 06/06/16 06:04 Lymph # 2.6 K/mm3 (1.2-5.4) 06/06/16 06:04 [place] # 1.1 K/mm3 (0.0-0.8) H 06/06/16 06:04 Eos # 0.0 K/mm3 (0.0-0.4) 06/06/16 06:04 Baso # 0.0 K/mm3 (0.0-0.1) 06/06/16 06:04 Seg Neutrophils % 62.8 % (40.0-70.0) 06/06/16 06:04 Seg Neutrophils # 6.3 K/mm3 (1.8-7.7) 06/06/16 06:04 PT 13.8 Sec. (12.2-14.9) 06/03/16 15:50 INR 1.07 (0.87-1.13) 06/03/16 15:50 VBG pH 7.426 (7.320-7.420) H 06/03/16 15:50 Sodium 135 mmol/L (137-145) L 06/06/16 06:04 Potassium 3.1 mmol/L (3.6-5.0) L 06/06/16 06:04 Chloride 95.3 mmol/L (98-107) L 06/06/16 06:04 Carbon Dioxide 27 mmol/L (22-30) 06/06/16 06:04 Anion Gap 16 mmol/L 06/06/16 06:04 BUN 8 mg/dL (7-17) 06/06/16 06:04 Creatinine 0.4 mg/dL (0.7-1.2) L 06/06/16 06:04 Estimated GFR > 60 ml/min 06/06/16 06:04 BUN/Creatinine Ratio 20.00 % 06/06/16 06:04 Glucose 108 mg/dL (65-100) H 06/06/16 06:04 POC Glucose 106 (70-105) H 06/06/16 09:17 Lactic Acid 1.5 mmol/L (0.7-2.0) 06/03/16 18:58 Calcium 8.6 mg/dL (8.4-10.2) 06/06/16 06:04 Total Bilirubin 0.4 mg/dL (0.1-1.2) 06/06/16 06:04 AST 22 units/L (5-40) 06/06/16 06:04 ALT 15 units/L (7-56) 06/06/16 06:04 Alkaline Phosphatase 46 units/L (35-129) 06/06/16 06:04 Total Protein 7.2 g/dL (6.3-8.2) 06/06/16 06:04 Albumin 3.5 g/dL (3.9-5) L 06/06/16 06:04 Albumin/Globulin Ratio 0.9 % 06/06/16 06:04 Urine Color Colorless (Yellow) 06/03/16 17:10 Urine Turbidity Clear (Clear) 06/03/16 17:10 Urine pH 7.0 (5.0-7.0) 06/03/16 17:10 Ur Specific [place] 1.002 (1.003-1.030) L 06/03/16 17:10 Urine Protein <15 mg/dl mg/dL (Negative) 06/03/16 17:10 Urine Glucose (UA) 150 mg/dL (Negative) 06/03/16 17:10 Urine Ketones Neg mg/dL (Negative) 06/03/16 17:10 Urine Blood Mod (Negative) 06/03/16 17:10 Urine Nitrite Neg (Negative) 06/03/16 17:10 Urine Bilirubin Neg (Negative) 06/03/16 17:10 Urine Urobilinogen < 2.0 mg/dL (<2.0) 06/03/16 17:10 Ur Leukocyte Esterase Neg (Negative) 06/03/16 17:10 Urine WBC (Auto) < 1.0 /HPF (0.0-6.0) 06/03/16 17:10 Urine RBC (Auto) 2.0 /HPF (0.0-6.0) 06/03/16 17:10 Digoxin 0.5 ng/mL (0.9-2.0) L 06/03/16 17:06
--- NOTE | 2016-06-06 11:47 | Progress Note ---
Assessment and Plan Initiate amiodarone and increase metoprolol in an attempt to convert the patient to sinus rhythm. Given cardiomyopathy (EF 35-40% on echo), will schedule left heart cath for tomorrow morning for definitive diagnosis. - Patient Problems (1) Atrial fibrillation with RVR Current Visit: Yes Status: Acute (2) Hypokalemia Current Visit: Yes Status: Acute (3) Cardiomyopathy Current Visit: Yes Status: Acute (4) Hypertension Current Visit: Yes Status: Chronic Qualifiers: Hypertension type: H (5) Diabetes Current Visit: Yes Status: Chronic Qualifiers: Diabetes mellitus type: D Diabetes mellitus complication status: D Diabetes mellitus complication detail: D Diabetic retinopathy severity: D Proliferative retinopathy type: P Diabetes mellitus macular edema: D Diabetes mellitus watermelon inspector insulin use: D Laterality: L Chronic kidney disease stage: C Subjective Date of service: 06/06/16 Principal diagnosis: new onset atrial fibrillation Interval history: The patient is resting in bed. She feels fine and wants to go home. Atrial fibrillation with HR 130s on the monitor. Objective Last Vital Signs Temp 98.6 F 06/06/16 09:15 Pulse 87 06/06/16 10:57 Resp 20 06/06/16 09:15 BP 132/70 06/06/16 10:57 Pulse Ox 97 06/06/16 09:15 - Physical Examination General: No Apparent Distress HEENT: Positive: PERRL, Mucus Membranes Moist Neck: Positive: neck supple, trachea midline Cardiac: Positive: irregularly irregular, S1/S2 Lungs: Positive: clear to auscultation Neuro: Positive: Grossly Intact Abdomen: Positive: Soft, Active Bowel Sounds. Negative: Tender, Distended Skin: Positive: Clear Incision: Cardiac Cath Site Musculoskeletal: No Pain, Normal Range of Motion Extremities: Present: normal. Absent: edema - Labs and Meds Cardiac Enzymes 06/06/16 Range/Units 06:04 AST 22 (5-40) units/L CBC 06/06/16 Range/Units 06:04 WBC 10.0 (4.5-11.0) K/mm3 RBC 4.21 (3.65-5.03) M/mm3 Hgb 13.6 (10.1-14.3) gm/dl Hct 39.9 (30.3-42.9) % Plt Count 245 (140-440) K/mm3 Lymph # 2.6 (1.2-5.4) K/mm3 [place] # 1.1 H (0.0-0.8) K/mm3 Eos # 0.0 (0.0-0.4) K/mm3 Baso # 0.0 (0.0-0.1) K/mm3 Comprehensive Metabolic Panel 06/06/16 Range/Units 06:04 Sodium 135 L (137-145) mmol/L Potassium 3.1 L (3.6-5.0) mmol/L Chloride 95.3 L (98-107) mmol/L Carbon Dioxide 27 (22-30) mmol/L BUN 8 (7-17) mg/dL Creatinine 0.4 L (0.7-1.2) mg/dL Glucose 108 H (65-100) mg/dL Calcium 8.6 (8.4-10.2) mg/dL AST 22 (5-40) units/L ALT 15 (7-56) units/L Alkaline Phosphatase 46 (35-129) units/L Total Protein 7.2 (6.3-8.2) g/dL Albumin 3.5 L (3.9-5) g/dL - Imaging and Cardiology Echo: report reviewed (05/2016: EF 35-40%, impaired relaxation, mild MR, moderate TR) - Telemetry EKG Rhythm: Atrial Fibrillation
[2016-06-06] MEDS ORDERED: NACL 0.9% 500 ML 500 ML IV SCH (12:00)
[2016-06-06] MEDS: KCL 10MEQ/100ML 10 MEQ/100 ML BAG IV SCH ×3 (12:27→15:26)
[2016-06-06] MEDS: K-DUR PO SCH ×2 (13:38→16:56)
[2016-06-06] MEDS: CORDARONE PO SCH ×4 (13:41→23:13)
[2016-06-06] MEDS: NOVOLOG SUB-Q SCH ×4 (13:44→23:10)
[2016-06-06] MEDS: DUONEB 0.5 MG-3 MG/3 ML SOLN IH SCH ×3 (13:51→20:38)
[2016-06-07] MEDS: LOPRESSOR PO SCH ×2 (01:00→05:54)
[2016-06-07] MEDS: DUONEB 0.5 MG-3 MG/3 ML SOLN IH SCH ×3 (01:53→13:58)
[2016-06-07] MEDS: BENADRYL PO SCH ×3 (05:55→14:56)
[2016-06-07 07:49] LABS: Basophils % (Auto) 0.1 % (0.0-1.8); Eosinophils % (Auto) 0.2 % (0.0-4.3); Hematocrit 39.4 % (30.3-42.9); Hemoglobin 13.1 gm/dl (10.1-14.3); Mean Corpuscular HGB Conc 33 % (30-34); Mean Corpuscular Hemoglobin 32 pg (28-32); Mean Corpuscular Volume 95 fl (79-97); Platelet Count 222 K/mm3 (140-440); Red Blood Count 4.16 M/mm3 (3.65-5.03); Red Cell Distribution Width 13.3 % (13.2-15.2); White Blood Count 9.4 K/mm3 (4.5-11.0)
[2016-06-07 08:00] LABS: INR 1.04 (0.87-1.13)
[2016-06-07 08:01] LABS: Blood Urea Nitrogen 12 mg/dL (7-17); Calcium 8.3 mg/dL (8.4-10.2); Carbon Dioxide 20 mmol/L (22-30); Chloride 99.9 mmol/L (98-107); Glucose 110 mg/dL (65-100); Partial Thromboplastin Time 26.7 Sec. (24.2-36.6); Potassium 3.4 mmol/L (3.6-5.0); Sodium 134 mmol/L (137-145)
[2016-06-07 08:13] LABS: Anion Gap 18 mmol/L
[2016-06-07] MEDS ORDERED: LOPRESSOR PO SCH ×2 (10:00→11:00)
--- NOTE | 2016-06-07 10:04 | Progress Note ---
Assessment and Plan a fib new onset PNA Hyponatermia HTN CHOL DM cardiomyopathy rec; discuss with son about cardiac cath they will decide if want to stay for it tomorrow or go home, pt afib controlled on current meds Subjective Date of service: 06/07/16 Principal diagnosis: new onset atrial fibrillation Interval history: pt has no chest pain or sob Objective Vital Signs Temp Pulse Pulse Pulse Resp Resp BP 06/07/16 08:10 73 18 06/07/16 08:00 98.1 F 59 L 18 06/07/16 07:59 69 17 06/07/16 05:54 92 H 134/90 06/07/16 04:20 98.7 F 92 H 24 06/07/16 01:08 94 H 06/07/16 01:00 94 H 129/92 06/07/16 00:20 98.6 F 88 22 06/06/16 20:20 98.7 F 128 H 24 06/06/16 17:55 94 H 170/108 06/06/16 17:45 97.4 F L 94 H 26 H 06/06/16 14:09 65 20 06/06/16 13:53 99 H 20 06/06/16 13:43 87 134/86 06/06/16 12:30 98.6 F 76 22 06/06/16 10:57 87 132/70 BP Pulse Ox 06/07/16 08:10 06/07/16 08:00 159/83 98 06/07/16 07:59 06/07/16 05:54 06/07/16 04:20 134/90 98 06/07/16 01:08 06/07/16 01:00 06/07/16 00:20 129/92 97 06/06/16 20:20 173/75 97 06/06/16 17:55 06/06/16 17:45 170/108 97 06/06/16 14:09 06/06/16 13:53 06/06/16 13:43 06/06/16 12:30 159/89 97 06/06/16 10:57 - Physical Examination General: No Apparent Distress HEENT: Positive: PERRL, Mucus Membranes Moist Neck: Positive: neck supple, trachea midline Cardiac: Positive: Irregularly Regular Lungs: Positive: clear to auscultation Neuro: Positive: Grossly Intact Abdomen: Positive: Soft, Active Bowel Sounds. Negative: Tender, Distended Skin: Positive: Clear Incision: Cardiac Cath Site Musculoskeletal: No Pain, Normal Range of Motion Extremities: Present: normal. Absent: edema - Labs and Meds Coagulation 06/07/16 Range/Units 06:37 PT 13.5 (12.2-14.9) Sec. INR 1.04 (0.87-1.13) APTT 26.7 (24.2-36.6) Sec. CBC 06/07/16 Range/Units 06:37 WBC 9.4 (4.5-11.0) K/mm3 RBC 4.16 (3.65-5.03) M/mm3 Hgb 13.1 (10.1-14.3) gm/dl Hct 39.4 (30.3-42.9) % Plt Count 222 (140-440) K/mm3 Lymph # 2.2 (1.2-5.4) K/mm3 [place] # 1.0 H (0.0-0.8) K/mm3 Eos # 0.0 (0.0-0.4) K/mm3 Baso # 0.0 (0.0-0.1) K/mm3 Comprehensive Metabolic Panel 06/07/16 Range/Units 06:37 Sodium 134 L (137-145) mmol/L Potassium 3.4 L (3.6-5.0) mmol/L Chloride 99.9 (98-107) mmol/L Carbon Dioxide 20 L D (22-30) mmol/L BUN 12 (7-17) mg/dL Creatinine 0.4 L (0.7-1.2) mg/dL Glucose 110 H (65-100) mg/dL Calcium 8.3 L (8.4-10.2) mg/dL - Imaging and Cardiology Echo: report reviewed (05/2016: EF 35-40%, impaired relaxation, mild MR, moderate TR) - Telemetry EKG Rhythm: Atrial Fibrillation (avg 60-70)
[2016-06-07] MEDS ORDERED: CORDARONE PO SCH (11:00)
[2016-06-07] MEDS ORDERED: K-DUR PO ONE ×2 (11:00→16:30)
[2016-06-07 12:29] VITALS: BP 159/81
--- NOTE | 2016-06-07 12:52 | Discharge Summary ---
Providers - Providers Date of Admission: 06/03/16 18:14 Date of discharge: 06/07/16 Attending physician: GANESH PETERSEN 06/04/16 14:04 Physical Therapy Evaluation and Treat [CONS] Routine Comment: Reason For Exam: ambulation 06/04/16 16:36 Consult to Physician [CONS] Routine Consulting Provider: LEOLA MENDEZ Reason For Exam: atrial fib Place consult to:: signal and communications maintainer cardiology Notified:: Rose VERDIN Phone number called:: Was contact made?: Yes If yes, spoke with:: Sarah-answering service Time called:: 16:53 Primary care physician: MERCHANDISING LEAD Hospitalization Condition: Stable Hospital course: The patient is a 75-year-old female who speaks Sami with h/o asthma presenting with a chief complaint of cough and shortness of breath for last 3days. Patient was also found to be in atrial fibrillation with a rapid ventricular response in the ER. Placed on eliquis and metoprolol for new onset At Fib. 2D echo showed EF of 25 to 30%, plan for cardiac cath tomorrow. Acute asthma exacerbation - on supplimental O2, abx, emperic steroid, nebulizer breathing Rx - cont inhelat, po abx and tappering dose of steroid at home H/o CAD - stopped plavex as she is on eliquis now - cont metoprolol and ACEI Htn, Benign -on metoprolol and Cozzar - increased the dose of cozzar roday Hyponatremia - likley due to dehydration and medication, was on HCTZ at home - improved with IV fluid - Stopped HCTZ DM2 - ADA diet, cont metformin, SSI New onset atrial Fib - She was placed on therapeutic dose of lovenox following admission, - cardiology recommended eliquis, 2d echo showed EF 35 to 40% - placed on lopressor for rate control New onset Systolic acute CHF, compensated - cont betablocker and ACEI - Pt is compensated and hypokalemic, can start diuretics outpt - plan for cardiac cath outpatient Hypokalemia - cont to replete disposition: home per Cardiology, Dr. Radford: "a fib new onset PNA Hyponatermia HTN CHOL DM cardiomyopathy rec; discuss with son about cardiac cath they will decide if want to stay for it tomorrow or go home, pt afib controlled on current meds " Today, patient was supposed to go for cardiac catheterization; however, her daughter who does not speak Vincentian and did not know that she was NPO, feed her breakfast this morning and son Mitchell the powerhouse mechanic supervisor (rafaelnamriki, youngest son at bedside) was not here. Patient is adamant about going home today and cardiology has just notified me to send her home today and they will set up cardiac catheterization as outpatient. Disposition: DC/TX HOME UNDER HOME HEALTH Time spent for discharge: 38 minutes Core Measure Documentation - Palliative Care Palliative Care/ Comfort Measures: Not Applicable - Core Measures Any of the following diagnoses?: heart failure, none - VTE Discharge Requirements Deep Vein Thrombosis/Pulmonary Embolism Present on Admission: No Has pt received <5 days of overlap therapy or INR<2.0: No Anticoagulant overlap therapy prescribed at discharge: No Contraindication No Overlap Therapy order at DC: Not Indicated - Heart Failure Discharge Requirements JONNY/ARB for LVSD if EF <40%: Yes Beta jose at discharge: Yes Exam - Physical Exam Narrative exam: GEN: WDWN, NAD, AWAKE, ALERT, ORIENTATED HEENT: NCAT, PERRL, EOMI, OP CLEAR NECK: SUPPLE, NO THYROMEGALY, NO JVD, NO LAD CVS: RRR, NORMAL S1S2 LUNGS/CHEST: NORMAL CHEST EXPANSION B, GOOD AIR ENTRY B ABD: SOFT NTND, GBS, NO REBOUND OR GUARDING MSK: FROM X 4 EXTREMITIES NEURO: CN 2-12 GROSSLY INTACT, NO new FOCAL DEFICITS PSY: CALM - Constitutional Vitals: Temp Pulse Resp BP Pulse Ox 98.8 F 58 L 20 159/81 97 06/07/16 11:47 06/07/16 11:47 06/07/16 11:47 06/07/16 11:47 06/07/16 11:47 Plan Activity: other (no strenous activites until cleared by cardiology, no driving until cleared by cardiology, no operating heavy machinery) Diet: low salt Follow up with: PRIMARY CARE, [Primary Care Provider] - 3-5 Days Prescriptions: Benzonatate [Tessalon Perles] 100 mg PO Q6H PRN #30 capsule PRN Reason: Cough Losartan [Cozaar] 50 mg PO DAILY #30 tablet metFORMIN XR [Glucophage XR] 500 mg PO DAILY #30 tablet Metoprolol [Lopressor TAB] 50 mg PO BID #60 tablet
[2016-06-07] MEDS: DELTASONE PO SCH (14:55)
[2016-06-07] MEDS: PEPCID PO SCH (14:56)
[2016-06-07] MEDS ORDERED: LEVAQUIN PO SCH (15:00)
[2016-06-07] MEDS: DIPROSONE TP SCH (15:02)
[2016-06-07] MEDS: CLARITIN PO SCH (15:02)
== END 2016-06-07 16:58 | disposition home or self-care (01) | DRG 193 ==
LOC: ED 14:59 → 4A 18:14
PROVIDERS: ADMIT Internal Medicine; ATTEND Internal Medicine
DX: J18.9 Pneumonia, unspecified organism (principal); I50.21 Acute systolic (congestive) heart failure; E87.1 Hypo-osmolality and hyponatremia; J45.901 Unspecified asthma with (acute) exacerbation; E78.5 Hyperlipidemia, unspecified; I48.91 Unspecified atrial fibrillation; E11.9 Type 2 diabetes mellitus without complications; I25.10 Atherosclerotic heart disease of native coronary artery without angina pectoris; K21.9 Gastro-esophageal reflux disease without esophagitis; E78.00 Pure hypercholesterolemia, unspecified; I11.0 Hypertensive heart disease with heart failure; E87.6 Hypokalemia; I42.9 Cardiomyopathy, unspecified; Z82.49 Family history of ischemic heart disease and other diseases of the circulatory system
CPT/HCPCS: 36415; 71010; 80048; 80051; 80053; 80162; 81001; 82140; 82805; 82962; 85025; 85610; 85730; 87040; 87086; 93005; 93010; 93306; 94640; 96374; A9270-GY; J0696; J1650; J1815; J1956; J3480; J7030; J7040; J7512

== ENCOUNTER 2016-07-16 17:33 | Emergency (ER) | payer MEDICARE ==
[~2016-07-16 17:33] MED LIST: ADRENALIN ONE; CALCIUM CHLORIDE IV ONE; D50W (25GM) IV ONE; SODIUM BICARBONATE IV ONE
--- NOTE | 2016-07-16 18:28 | Emergency Department Report ---
ED CPR HPI - General Chief Complaint: Cardiac Arrest/CPR Stated Complaint: CARDIAC ARREST Time Seen by Provider: 07/16/16 17:40 Source: EMS (verbal report received from EMS.ems notes not available at time of chart dictation) Mode of arrival: Stretcher Limitations: Other - History of Present Illness Initial Comments: This is a 75-year-old female. She is previously unknown to me. The patient presents to the ER in cardiac arrest. As per verbal report from EMS , [facility] The patient was found to be in pulseless electrical activity. She was intubated in the field. She received epinephrine 2. She received high quality CPR in the field Upon arrival to the ER, the patient was pulseless, her pupils were fixed and midpoint, nonreactive, had a normal fingerstick. She remained in pulseless electrical activity. The patient continued to receive high quality CPR, and standard ACLS medications. EMS estimates the patient is pulseless for at least 20 minutes prior to arrival to the ER. Serial bedside ultrasounds did not demonstrate coordinated ventricular activity. Unfortunately, return of spontaneous circulation cannot be regained. Resuscitation efforts are terminated. The family is informed. Complaint: collapsed during rest -: minute(s) Place: [facility] Initial Findings in the Field: PEA Treatments Prior to Arrival: intubation, chest compressions, epinephrine mgs # ( 2) - Related Data Home Medications Medication Instructions Recorded Confirmed Last Taken Baclofen [Lioresal] 10 mg PO DAILY 06/07/16 06/09/16 06/07/16 Triamter/Hctz 37.5-25 mg 1 tab PO QDAY 06/07/16 06/07/16 06/07/16 [Maxzide-25] amLODIPine [Norvasc] 5 mg PO DAILY 06/07/16 06/07/16 06/07/16 Previous Rx's Medication Instructions Recorded Last Taken Type ALBUTEROL NEB's [Proventil 0.083% 2.5 mg IH Q4HRT PRN #30 nebu 07/07/16 Unknown Rx NEBS] Antacid [Alum-Mag Hydrox-Simeth 30 ml PO Q4H PRN #30 oral.liqd 07/07/16 Unknown Rx [id number]/5Ml] AtorvaSTATin [Lipitor] 40 mg PO QHS tablet 07/07/16 Unknown Rx Bisacodyl [Dulcolax suppos] 10 mg IN QDAY PRN #30 supp.rect 07/07/16 Unknown Rx Digoxin [Lanoxin] 0.125 mg PO DAILY@1700 tablet 07/07/16 Unknown Rx Famotidine [Pepcid] 20 mg PO DAILY tablet 07/07/16 Unknown Rx Folic Acid [Folvite] 1 mg PO QDAY tablet 07/07/16 Unknown Rx Furosemide [Lasix TAB] 20 mg PO QDAY tablet 07/07/16 Unknown Rx Insulin Detemir [Levemir] 8 units SUB-Q DAILY units 07/07/16 Unknown Rx Lipase/Protease/Amylase [Pancreaze 1 each FEEDTUBE PRN PRN #30 capsule 07/07/16 Unknown Rx 10,500 Unit] Lisinopril [Zestril TAB] 10 mg PO QDAY tablet 07/07/16 Unknown Rx Magnesium Hydroxide [Milk of 30 ml PO Q4H PRN #30 oral.liqd 07/07/16 Unknown Rx Magnesia] Metoprolol [Lopressor TAB] 50 mg PO TID #30 tablet 07/07/16 Unknown Rx Racepinephrine [S2 Racepinephrine 0.5 ml IH Q4HRT PRN #30 nebu 07/07/16 Unknown Rx 2.25%] Simple Syrup 15 ml FEEDTUBE PRN PRN #30 07/07/16 Unknown Rx oral.liqd Simple Syrup 30 ml FEEDTUBE PRN PRN #30 07/07/16 Unknown Rx oral.liqd Sodium Bicarbonate 325 mg FEEDTUBE PRN PRN #30 tablet 07/07/16 Unknown Rx Thiamine [Vitamin B-1] 100 mg PO QDAY tablet 07/07/16 Unknown Rx clonazePAM [KlonoPIN] 0.25 mg PO BID tablet 07/07/16 Unknown Rx Allergies Allergy/AdvReac Type Severity Reaction Status Date / Time No Known Allergies Allergy Unverified 10/22/13 08:15 ED Review of Systems ROS: Stated complaint: CARDIAC ARREST Other details as noted in HPI ED Past Medical Hx - Past Medical History Hx Hypertension: Yes Hx Diabetes: Yes Hx Liver Disease: No Hx Renal Disease: No Hx Seizures: No Hx Asthma: No Hx HIV: No Additional medical history: Hypercholesterolemia - Surgical History Additional Surgical History: Cardiac catheterization. Unknown abdominal surgery - Social History Smoking Status: Unknown if ever smoked - Medications Home Medications: Home Medications Medication Instructions Recorded Confirmed Last Taken Type Baclofen [Lioresal] 10 mg PO DAILY 06/07/16 06/09/16 06/07/16 History Triamter/Hctz 37.5-25 mg 1 tab PO QDAY 06/07/16 06/07/16 06/07/16 History [Maxzide-25] amLODIPine [Norvasc] 5 mg PO DAILY 06/07/16 06/07/16 06/07/16 History ALBUTEROL NEB's [Proventil 0.083% 2.5 mg IH Q4HRT PRN #30 nebu 07/07/16 Unknown Rx NEBS] Antacid [Alum-Mag Hydrox-Simeth 30 ml PO Q4H PRN #30 oral.liqd 07/07/16 Unknown Rx [id number]/5Ml] AtorvaSTATin [Lipitor] 40 mg PO QHS tablet 07/07/16 Unknown Rx Bisacodyl [Dulcolax suppos] 10 mg IN QDAY PRN #30 supp.rect 07/07/16 Unknown Rx Digoxin [Lanoxin] 0.125 mg PO DAILY@1700 tablet 07/07/16 Unknown Rx Famotidine [Pepcid] 20 mg PO DAILY tablet 07/07/16 Unknown Rx Folic Acid [Folvite] 1 mg PO QDAY tablet 07/07/16 Unknown Rx Furosemide [Lasix TAB] 20 mg PO QDAY tablet 07/07/16 Unknown Rx Insulin Detemir [Levemir] 8 units SUB-Q DAILY units 07/07/16 Unknown Rx Lipase/Protease/Amylase [Pancreaze 1 each FEEDTUBE PRN PRN #30 capsule 07/07/[address] 10,500 Unit] Lisinopril [Zestril TAB] 10 mg PO QDAY tablet 07/07/16 Unknown Rx Magnesium Hydroxide [Milk of 30 ml PO Q4H PRN #30 oral.liqd 07/07/16 Unknown Rx Magnesia] Metoprolol [Lopressor TAB] 50 mg PO TID #30 tablet 07/07/16 Unknown Rx Racepinephrine [S2 Racepinephrine 0.5 ml IH Q4HRT PRN #30 nebu 07/07/16 Unknown Rx 2.25%] Simple Syrup 15 ml FEEDTUBE PRN PRN #30 07/07/16 Unknown Rx oral.liqd Simple Syrup 30 ml FEEDTUBE PRN PRN #30 07/07/16 Unknown Rx oral.liqd Sodium Bicarbonate 325 mg FEEDTUBE PRN PRN #30 tablet 07/07/16 Unknown Rx Thiamine [Vitamin B-1] 100 mg PO QDAY tablet 07/07/16 Unknown Rx clonazePAM [KlonoPIN] 0.25 mg PO BID tablet 07/07/16 Unknown Rx ED Physical Exam - General Limitations: Other (nonverbal, intubated, GCS of 3) General appearance: other - Head Head exam: Present: atraumatic (intubated, GCS of 3), normocephalic - Eye Eye exam: Present: other (pupils do not react to light, and are fixed) - ENT ENT exam: Present: normal external ear exam - Neck Neck exam: Present: normal inspection - Respiratory Respiratory exam: Present: other (no breath sounds are appreciated unless patient receives yip-iyeyg-agil ventilation) - Cardiovascular Cardiovascular Exam: Present: other (patient is pulseless) - GI/Abdominal GI/Abdominal exam: Present: soft, other (feeding tube is noted) - External exam: Present: normal external exam - Extremities Exam Extremities exam: Present: normal inspection - Back Exam Back exam: Present: normal inspection - Neurological Exam Neurological exam: Present: other (intubated, GCS of 3) - Psychiatric Psychiatric exam: Present: other (nonverbal) Critical care attestation.: If time is entered above; I have spent that time in minutes in the direct care of this critically ill patient, excluding procedure time. ED Disposition Clinical Impression: Cardiac arrest Disposition: Is pt being admited?: No Does the pt Need Aspirin: No Condition: Undetermined Referrals: PRIMARY CARE,MD [Primary Care Provider] - 3-5 Days
[2016-07-16] MEDS ORDERED: AMIDATE IV ONE (23:17)
[2016-07-16] MEDS ORDERED: SUBLIMAZE ONE (23:17)
[2016-07-16] MEDS ORDERED: NACL 0.9% 1000 ML 0 ML ONE (23:21)
[2016-07-16 23:22] VITALS: BP 90/63
[2016-07-16] MEDS ORDERED: CARDIZEM ONE (23:38)
== END 2016-07-16 22:00 ==
LOC: ED 17:33
DX: I46.9 Cardiac arrest, cause unspecified (principal); E11.9 Type 2 diabetes mellitus without complications; E78.00 Pure hypercholesterolemia, unspecified
CPT/HCPCS: 92950; 99285; J0171; J0153; J1815; J3010; J7030